=== PATIENT | male | born 1985 | race Caucasian/White ===

== ENCOUNTER 2018-12-06 09:35 | Emergency (ER) | payer SELFPAY ==
[~2018-12-06] VITALS: Ht 180.3 cm; Wt 86.4 kg
[2018-12-06 11:35] VITALS: BP 120/95
== END 2018-12-06 11:36 | disposition home or self-care (01) ==
LOC: ED 10:37
DX: F41.1 Generalized anxiety disorder (principal); R06.4 Hyperventilation; F17.210 Nicotine dependence, cigarettes, uncomplicated
CPT/HCPCS: 36415; 71045; 80053; 84484; 85025; 93005; 99284